=== PATIENT | male | born 1955 ===

== ENCOUNTER 2019-01-05 07:48 | Inpatient (IN) ==
[2019-01-01 12:01] LABS: Appearance,Urine CLEAR; Bilirubin,Urine NEG (NEG); Color,Urine YELLOW; Glucose,Urine (UA) NEGATIVE (NEG); Leukocyte Esterase,Urine NEG /uL (NEG); Protein,Urine NEG (NEG); Specific Gravity,Urine 1.018 (1.000-1.035); Urine Blood NEG mg/dL (<0.03); Urobilinogen,Urine NEG (NEG)
[2019-01-01 12:36] LABS: Basophils # (Auto) 0 K/mcL (0.0-0.3); Basophils % (Auto) 0.6 % (0.0-2.0); Eosinophils # (Auto) 0.2 K/mcL (0.0-0.7); Eosinophils % (Auto) 2.7 % (0.0-7.0); Lymphocytes % (Auto) 29.5 % (15.5-49.0); Mean Cell Volume 94.8 fL (80.0-100.0); Mean Corpuscular HGB Conc 33.3 g/dL (31.0-36.0); Monocytes # (Auto) 0.3 K/mcL (0.1-0.9); Monocytes % (Auto) 5.2 % (1.0-12.0); Platelet Count 201 K/mcL (140-440); RBC 5.31 M/mcL (4.50-5.90); Red Cell Distribution Width 13.5 % (11.5-14.5)
[2019-01-01 13:04] LABS: Blood Urea Nitrogen 12 mg/dl (8-23)
[~2019-01-05 07:48] MED LIST: 0.9 % SODIUM CHLORIDE 9 ML, KETOROLAC 30 MG, ROPIVACAINE HCL/PF 49.5 ML, EPINEPHrine 0.... IJ SCH; ACETAMINOPHEN 500 MG TABLET PO SCH; CELECOXIB 200 MG CAPSULE PO SCH; CLINDAMYCIN 900 MG in DEXTROSE 5% IN WATER 50 ML IV SCH; PREGABALIN 75 MG CAPSULE PO SCH; oxyCODONE 10 MG TAB.ER.12H PO SCH
[2019-01-05] MEDS ORDERED: LIDOCAINE HCL/PF 100 MG/5 ML SYRINGE IV ONE (10:45)
[2019-01-05] MEDS ORDERED: ROPIVACAINE HCL/PF 20 ML VIAL IJ ONE (10:45)
[2019-01-05] MEDS ORDERED: PROPOFOL 200 MG/20 ML VIAL IV ONE (10:45)
[2019-01-05] MEDS ORDERED: DEXAMETHASONE 10 MG/ML VIAL IV ONE (10:45)
[2019-01-05] MEDS ORDERED: GLYCOPYRROLATE 0.2 MG/ML VIAL IV ONE (10:45)
[2019-01-05] MEDS ORDERED: PHENYLEPHRINE 10 MG/ML VIAL IV ONE (10:45)
[2019-01-05] MEDS ORDERED: KETAMINE 100 MG/ML ML IV ONE (10:45)
[2019-01-05] MEDS ORDERED: ONDANSETRON 4 MG/2 ML VIAL IV ONE (10:45)
[2019-01-05] MEDS ORDERED: MIDAZOLAM 5 MG/5 ML VIAL IV ONE (10:45)
[2019-01-05] MEDS ORDERED: TRANEXAMIC ACID 1,000 MG/10 ML VIAL IV ONE (10:45)
[2019-01-05] MEDS ORDERED: GENTAMICIN SULFATE 800 MG/20 ML VIAL IR ONE (11:11)
[2019-01-05] MEDS ORDERED: NALOXONE HCL 0.4 MG/ML VIAL IV PRN (11:12)
[2019-01-05] MEDS ORDERED: fentaNYL 100 MCG/2 ML VIAL IV PRN (11:12)
[2019-01-05] MEDS ORDERED: MEPERIDINE 25 MG/ML SYRINGE IV PRN (11:12)
[2019-01-05] MEDS ORDERED: IPRATROPIUM/ALBUTEROL 3 ML AMPUL.NEB NEB PRN (11:12)
[2019-01-05] MEDS ORDERED: FLUMAZENIL 0.1 MG/ML ML IV PRN (11:12)
[2019-01-05] MEDS ORDERED: METHOCARBAMOL 1,000 MG/10 ML VIAL IV PRN (11:12)
[2019-01-05] MEDS ORDERED: BENZOCAINE/MENTHOL 1 LOZENGE PO PRN ×2 (11:12→12:35)
[2019-01-05] MEDS ORDERED: KETOROLAC 30 MG/ML VIAL IV PRN (11:12)
[2019-01-05] MEDS ORDERED: LACTATED RINGERS 250 ML IV PRN (11:12)
[2019-01-05] MEDS ORDERED: ONDANSETRON 4 MG/2 ML VIAL IV PRN ×2 (11:12→12:35)
[2019-01-05] MEDS ORDERED: PROMETHAZINE 25 MG/ML VIAL IV PRN (11:12)
[2019-01-05] MEDS ORDERED: HYDROmorphone 2 MG/ML VIAL IV PRN ×2 (11:12→12:35)
[2019-01-05] MEDS ORDERED: LACTATED RINGERS 1,000 ML IV SCH (11:15)
[2019-01-05] MEDS ORDERED: FLEETS ADULT ENEMA PR PRN (12:35)
[2019-01-05] MEDS ORDERED: TRANEXAMIC ACID 1,000 MG/10 ML VIAL IV SCH (12:35)
[2019-01-05] MEDS ORDERED: POLYETHYLENE GLYCOL 3350 17 GM PACKET PO PRN (12:35)
[2019-01-05] MEDS ORDERED: ACETAMINOPHEN 325 MG TABLET PO PRN (12:35)
[2019-01-05] MEDS ORDERED: BISACODYL 10 MG SUPP.RECT PR PRN (12:35)
[2019-01-05] MEDS ORDERED: MAGNESIUM HYDROXIDE 30 ML ORAL.SUSP PO PRN (12:35)
--- NOTE | 2019-01-05 12:35 | Brief Operative Note ---
Date of procedure: 01/05/19 Pre-op diagnosis: lefty knee djd Post-op diagnosis: same Procedure: left tka wht tila Grafts/Implants: Yes Anesthesia: GETA Surgeon: Clinton Martinez Boom Worker: Milton Jones
[2019-01-05] MEDS ORDERED: ceFAZolin 1 GM VIAL IV SCH (12:45)
--- NOTE | 2019-01-05 13:01 | Operative Note ---
DATE OF OPERATION: 01/05/2019 PREOPERATIVE DIAGNOSIS: Left knee degenerative arthritis throughout all three compartments. POSTOPERATIVE DIAGNOSIS: Left knee degenerative arthritis throughout all three compartments. PROCEDURE: Left robotic total knee arthroplasty. SURGEON: Clinton Martinez M.D. CLOTH CALENDER: Milton Jones PA-C. ANESTHESIA: General LMA anesthesia. COMPLICATIONS: None. TOTAL TOURNIQUET TIME: Approximately 55 minutes. IMPLANTS: A size 7 femur and size 7 tibial baseplate with a 9 mm deep dish poly with a 36 mm patellar button. DESCRIPTION OF PROCEDURE: The patient was brought to the operating room and put to sleep with general LMA anesthesia. Once asleep, the patient had the left leg sterilely prepped and draped in the usual sterile fashion, and tourniquet was inflated to 250 pounds of pressure. Ioban was placed over the knee. We then made a midline incision, midvastus approach, and exposed the joint showing severe arthritis throughout the knee in all compartments. We removed osteophytes. We then placed pins above and below the knee, registered the center of hip rotation, thirty points on the femur and the tibia were registered, and then we balanced the knee at 90 degrees and 15 degrees noting that there was a 12 to 13 degree flexion contracture. With this, we were able to position the implant to perfectly balance the knee. Once done, we then irrigated thoroughly and then were able to make the bony cuts. We trialed the trials. They fit very nicely. We then cemented into place the above-mentioned sizes. The patient tolerated this well. Excess cement was removed. We closed the midvastus approach with #1 Stratafix x2 sutures. Skin was closed with Stratafix and 2-0 Vicryl and adhesive closure. The patient tolerated this. RBH:elise Job ID: [id number] Doc ID: [id number] Clinton Martinez MD
[2019-01-05] MEDS: 0.45 % SODIUM CHLORIDE 1,000 ML IV SCH ×2 (13:29→23:05)
--- NOTE | 2019-01-05 13:38 | XRay Report ---
HISTORY: Postop left knee replacement FINDINGS: There is a well positioned total knee prosthesis. No fracture is present. IMPRESSION: Well-positioned left knee prosthesis Interpreted and Authenticated by: Sam Taylor 01/05/19
[2019-01-05] MEDS: 0.9 % SODIUM CHLORIDE 10 ML SYRINGE IV SCH ×2 (13:46→20:27)
[2019-01-05] MEDS: HYDROcodone/APAP 10/325MG TABLET PO PRN (14:35)
[2019-01-05] MEDS: KETOROLAC 15 MG/ML VIAL IV SCH ×2 (17:53→23:04)
[2019-01-05] MEDS: CLINDAMYCIN 900 MG in DEXTROSE 5% IN WATER 50 ML IV SCH (17:53)
[2019-01-05] MEDS: DOCUSATE SODIUM 100 MG CAPSULE PO SCH (20:17)
[2019-01-05] MEDS: ASPIRIN 325 MG ENTERIC COATED TABLET PO SCH (20:17)
[2019-01-05] MEDS ORDERED: SENNOSIDES 1 TABLET PO SCH (21:00)
[2019-01-05] MEDS ORDERED: TEMAZEPAM 15 MG CAPSULE PO PRN (21:00)
[2019-01-06] MEDS: CLINDAMYCIN 900 MG in DEXTROSE 5% IN WATER 50 ML IV SCH (01:26)
[2019-01-06] MEDS: KETOROLAC 15 MG/ML VIAL IV SCH ×2 (04:50→11:02)
[2019-01-06] MEDS: 0.9 % SODIUM CHLORIDE 10 ML SYRINGE IV SCH (04:51)
--- NOTE | 2019-01-06 07:38 | Orthopedic Progress Note ---
Subjective Patient information: Note initiated : 01/06/19 at 7:37 am Service Date, if different from initiated Date: [] Patient: Obed Holden 63 y/o M admitted on 01/05/19 for Left Robotic Total Knee Arthroplasty. Chief Complaint: [Pt is stable this morning on post operative day 1 without any significant concerns or complaints. Patients vital signs have remained stable. Patients dressing is dry and is grossly intact from a neurovascular and motor standpoint. Patients 10 point ROS is otherwise negative. ] Objective Vital signs: Vital Signs Temp Pulse Resp BP BP Pulse Ox 01/06/19 04:16 98.2 F 69 20 117/73 92 01/05/19 23:04 98.2 F 67 20 115/68 92 01/05/19 19:36 98.5 F 64 22 115/70 92 01/05/19 14:27 59 L 129/86 97 01/05/19 14:11 57 L 137/82 95 01/05/19 13:56 57 L 128/85 97 01/05/19 13:42 59 L 139/87 93 01/05/19 13:26 58 L 146/93 92 01/05/19 13:25 93 01/05/19 13:10 97.0 F 62 20 156/89 98 01/05/19 13:00 64 20 146/88 98 01/05/19 12:57 97.0 F 61 11 L 114/66 98 01/05/19 12:55 66 21 126/74 93 01/05/19 12:50 96.3 F L 61 11 L 114/66 98 01/05/19 08:00 97.6 F 60 14 136/81 94 01/05/19 07:48 20 Intake and Output 01/05/19 01/06/19 01/06/19 21:59 05:59 13:59 Intake Total 296 2100 Output Total 500 1300 200 Balance -204 800 -200 Intake: IV 56 1000 Sodium Chloride 0.45% 1,000 ml 1000 @ 100 mls/hr IV .Q10H [facility] Rx#: [id number] Cleocin 900 mg In Dextrose 5% 56 in Water 50 ml @ 100 mls/hr IV Q8H [facility] Rx#:[id number] Oral 240 1100 Output: Void Amount 500 1300 200 Other: Meal Lunch Percent of Meal Consumed 100% Urine Appearance Clear Urine Color Straw Urine Odor Normal Weight 248 lb Intake & Output: Intake & Output 01/05/19 01/06/19 01/06/19 21:59 05:59 13:59 Intake Total 296 2100 Output Total 500 1300 200 Balance -204 800 -200 Weight 248 lb Intake: IV 56 1000 Sodium Chloride 0.45% 1,000 ml 1000 @ 100 mls/hr IV .Q10H [facility] Rx#: [id number] Cleocin 900 mg In Dextrose 5% 56 in Water 50 ml @ 100 mls/hr IV Q8H [facility] Rx#:[id number] Oral 240 1100 Output: Void Amount 500 1300 200 Other: Meal Lunch Percent of Meal Consumed 100% Urine Appearance Clear Urine Color Straw Urine Odor Normal Incision: Yes healing Incision clean and dry: Yes Dressing: Yes clean Weight bearing status: full Neurological exam IM: Yes motor sensory intact, Yes neurovascular intact Extremities exam IM: Yes Foot pink and warm, Yes neurovascular intact - Labs CBC & BMP: 01/06/19 04:23 01/01/19 10:21 Labs: 01/06/19 01/01/19 04:23 10:22 Hgb 16.8 H Hct 40.5 L 50.3 Assessment and Plan (1) Hx of total knee arthroplasty The patient has been educated regarding dressing care, Physical Therapy rec ommendations, home exercises, restrictions, and follow up appointments. The patient has had all necessary DME prescribed. The patient has remained relatively stable during their hospital course. Leave Dermabond patch intact until followup Status: Acute
--- NOTE | 2019-01-06 07:40 | Discharge Summary ---
Ortho Discharge - TKA - Patient Instructions Diet: Regular Diet Activity: activity as tolerated, weight bearing as tolerated Total Knee Protocol: For Total Knee: Start ROM LESVIA with stationary bike or rocking chair. Work on gaining full extension of knee. Posterior dislocation precautions provided. Hip abductor strengthening and gait training instructions provided. Apply Cryocuff as instructed. Dressing Care: May shower in 2 days - Problem Maintenance (1) Hx of total knee arthroplasty Status: Acute - Follow Up Plan Follow Up Appointments: Milton Jones PA-C [Physician Lang Interpreter] - 01/20/19 1:00 pm Disposition: Home, Self-Care Prognosis: Good Rehab Potential: Good I certify that the patient requires SNF services: No Overall status at discharge: patient is progressing back to baseline - Orders For Discharge Prescriptions: Aspirin [Ecotrin] 325 mg PO BID #60 tab.ec Docusate Sodium [Colace] 100 mg PO BID #60 capsule HYDROcodone/APAP 10/325MG [[place] 10-325Mg] 1 - 2 tab PO Q4HP PRN #75 tab PRN Reason: Pain Level 3-6
[2019-01-06] MEDS: ASPIRIN 325 MG ENTERIC COATED TABLET PO SCH (08:09)
[2019-01-06] MEDS: HYDROcodone/APAP 10/325MG TABLET PO PRN ×2 (08:09→13:35)
[2019-01-06] MEDS: DOCUSATE SODIUM 100 MG CAPSULE PO SCH (08:09)
[2019-01-06] MEDS: 0.45 % SODIUM CHLORIDE 1,000 ML IV SCH (08:14)
== END 2019-01-06 13:55 | disposition home or self-care (01) | DRG 470 ==
LOC: MEDSUR 07:48
PROVIDERS: ADMIT Orthopaedic Surgery; ATTEND Orthopaedic Surgery